=== PATIENT | male | born 1980 | race Caucasian/White ===

== ENCOUNTER 2020-02-22 21:30 | Emergency (ER) | payer SELFPAY ==
[~2020-02-22] VITALS: Ht 182.9 cm; Wt 81.6 kg
[2020-02-22 21:35] VITALS: BP_SYST 144
--- NOTE | 2020-02-22 21:35 | NUR ---
PT TO [facility] FOR EVALUATION
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
--- NOTE | 2020-02-22 22:00 | NUR ---
PT BACK FROM CT SCAN
--- NOTE | 2020-02-22 22:10 | NUR ---
CONTACT INFORMATION JOSEPH KING
[2020-02-22] MEDS ORDERED: KETOROLAC TROMETHAMINE 30 MG VIAL ONE (23:02)
--- NOTE | 2020-02-22 23:02 | NUR ---
collected urine and sent to lab.
[2020-02-22] MEDS ORDERED: KETOROLAC TROMETHAMINE 30 MG VIAL IVP ONE (23:15)
[2020-02-22] MEDS ORDERED: MORPHINE 4 MG/ML INJ. SYRINGE ONE (23:33)
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
[2020-02-22] MEDS ORDERED: MORPHINE 4 MG/ML INJ. SYRINGE IVP ONE (23:45)
[2020-02-22 23:47] LABS: CANNABINOID, URINE POSITIVE (NEG <=50); METHAMPHETAMINES SCREEN,URINE POSITIVE (NEG <=500); URINE AMPHETAMINE POSITIVE (NEG <=500)
[2020-02-22 23:48] LABS: BARBITURATE, URINE NEGATIVE (NEG <=200); BENZODIAZEPINE, URINE NEGATIVE (NEG <=150); COCAINE, URINE NEGATIVE (NEG <=150); OPIATE, URINE NEGATIVE (NEG <=100); PHENCYCLIDINE SCREEN,URINE NEGATIVE (NEG <=25); UR TRICYCLIC ANTIDEPRESSANTS NEGATIVE (NEG <=300); URINE METHADONE NEGATIVE (NEG <=200); URINE OXYCODONE SCREEN NEGATIVE (NEG <=100); URINE PROPOXYPHENE SCREEN NEGATIVE (NEG <=300)
[2020-02-22 23:49] LABS: ACETAMINOPHEN < 1 ug/mL (1-30)
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
[2020-02-23 01:14] VITALS: BP_SYST 96
--- NOTE | 2020-02-23 01:15 | NUR ---
STAT EKG per Dr. Kan arciniega.
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
--- NOTE | 2020-02-23 01:28 | NUR ---
[facility] ARRIVED TO TRANSPORT PT.
== END 2020-02-23 01:14 | disposition short-term general hospital (02) ==
LOC: SED 21:30
DX: S02.2XXA Fracture of nasal bones, initial encounter for closed fracture (principal); S02.31XA Fracture of orbital floor, right side, initial encounter for closed fracture; F10.129 Alcohol abuse with intoxication, unspecified; Y04.2XXA Assault by strike against or bumped into by another person, initial encounter; Y93.89 Activity, other specified; Y92.89 Other specified places as the place of occurrence of the external cause; Y99.8 Other external cause status; Y90.8 Blood alcohol level of 240 mg/100 ml or more
CPT/HCPCS: 36415; 70450; 70486; 72125; 76376; 80307; 82140; 93005; 96374; 96375; 99285; G0480; G0481; J1885; J2270